=== PATIENT | female | born 1985 | race Caucasian/White ===

== ENCOUNTER → 2021-12-02 | Outpatient (CLI) | payer OTHER, SELFPAY ==
[2021-12-02 14:45] LABS: Absolute Lymphocyte Count 1.26 X10^3/uL (0.83-4.51); Absolute Neutrophil Count 5.4 X10^3/uL (2.0-7.7); Basophil# 0.06 X10^3/uL; Basophil% 0.8 % (0-1); Eosinophil# 0.17 X10^3/uL; Eosinophils% 2.2 % (0-5); Hematocrit 43.9 % (37-47); Hemoglobin 14.7 g/dL (12.0-15.0); Lymphocyte # 1.26 X10^3/ul (0.83-4.51); Lymphocyte % 16.5 % (19-41); Mean Corp Hgb Conc 33.5 g/dL (32-36); Mean Corpuscular Hgb 29.3 pg (27.0-32.0); Mean Corpuscular Volume 87.6 fL (81-99); Mean Platelet Vol. 9.3 fl (6.2-12.0); Monocyte# 0.71 X10^3/uL; Monocyte% 9.3 % (0-10); NRBC Flagged by Analyzer 0 % (0-5); Neutrophil % 70.9 % (47-70); Platelet Count 264 K/mm3 (150-450); RBC Distribution Width CV 12.2 % (11.6-14.6); RBC Distribution Width SD 39.1 fl (35.1-43.9); Red Blood Count 5.01 M/mm3 (4.2-5.4); White Blood Count 7.6 K/mm3 (4.4-11.0)
[2021-12-02 15:05] LABS: ALB/GLOB Ratio 1.2 RATIO (0.9-2.4); AST(SGOT) 15 U/L (15-37); Alanine Aminotransfer ALT/SGPT 33 U/L (13-56); Albumin, Serum 4.7 g/dL (3.2-5.0); Alkaline Phosphatase 54 U/L (45-117); Anion Gap 7 (5-15); BUN 14 mg/dL (7-18); BUN/Creat Ratio 17.5 RATIO (10-20); Calcium,Total 9.4 mg/dL (8.5-10.1); Chloride 102 mmol/L (98-107); EST Glomerular Filtration Rate 86 mL/min (>60); Est Glom Filt Rate - Afr Amer 104 mL/min (>60); Ferritin 67 ng/mL (8-252); Free T3 2.8 pg/mL (2.18-3.98); Globulin 3.8 g/dL (2.2-4.2); Glucose 81 mg/dL (74-106); Iron 58 ug/dL (50-170); Protein, Total 8.5 g/dL (6.4-8.2); Sodium Level 137 mmol/L (136-145); T4 Free Direct 1.05 ng/dL (0.76-1.46); T4 Total, Thyroxin 11.5 ug/dL (4.8-13.9); Thyroid Stim Hormone (TSH) 1.01 uIU/mL (0.358-3.74)
== END | disposition home or self-care (01) ==
LOC: LABSPEC 13:00
PROVIDERS: Referring Provider Nurse Practitioner Family; Visit Provider Nurse Practitioner Family
DX: R53.83 Other fatigue (principal); R63.5 Abnormal weight gain; E04.1 Nontoxic single thyroid nodule
CPT/HCPCS: 80053; 82728; 83540; 84436; 84439; 84443; 84481; 85025

== ENCOUNTER → 2022-03-30 | Outpatient (CLI) | payer OTHER, SELFPAY ==
[2022-03-30 18:14] LABS: Absolute Lymphocyte Count 1.82 X10^3/uL (0.83-4.51); Basophil# 0.05 X10^3/uL; Basophil% 0.6 % (0-1); Eosinophil# 0.19 X10^3/uL; Eosinophils% 2.2 % (0-5); Hematocrit 44.5 % (37-47); Hemoglobin 14.9 g/dL (12.0-15.0); Lymphocyte # 1.82 X10^3/ul (0.83-4.51); Lymphocyte % 20.9 % (19-41); Mean Corp Hgb Conc 33.5 g/dL (32-36); Mean Corpuscular Hgb 28.9 pg (27.0-32.0); Mean Corpuscular Volume 86.4 fL (81-99); Mean Platelet Vol. 9.2 fl (6.2-12.0); Monocyte# 0.68 X10^3/uL; Monocyte% 7.8 % (0-10); NRBC Flagged by Analyzer 0 % (0-5); Neutrophil # 5.96 X10^3/uL (2.7-7.7); Neutrophil % 68.3 % (47-70); Platelet Count 303 K/mm3 (150-450); RBC Distribution Width CV 12.1 % (11.6-14.6); RBC Distribution Width SD 38.3 fl (35.1-43.9); Red Blood Count 5.15 M/mm3 (4.2-5.4); White Blood Count 8.7 K/mm3 (4.4-11.0)
[2022-03-30 18:51] LABS: Progesterone Level 0.41 ng/mL (See Comment)
[2022-03-30 18:58] LABS: ALB/GLOB Ratio 1.1 RATIO (0.9-2.4); AST(SGOT) 19 U/L (15-37); Alanine Aminotransfer ALT/SGPT 22 U/L (13-56); Albumin, Serum 4.4 g/dL (3.2-5.0); Alkaline Phosphatase 23 U/L (45-117); Anion Gap 10 (5-15); BUN 22 mg/dL (7-18); BUN/Creat Ratio 23.6 RATIO (10-20); Chloride 101 mmol/L (98-107); Creatinine, Serum 0.93 mg/dL (0.55-1.02); EST Glomerular Filtration Rate 72 mL/min (>60); Est Glom Filt Rate - Afr Amer 87 mL/min (>60); Estradiol 51.4 pg/mL; Glucose 84 mg/dL (74-106); Potassium 4.3 mmol/L (3.5-5.1); Protein, Total 8.4 g/dL (6.4-8.2); Sodium Level 138 mmol/L (136-145); T4 Free Direct 0.95 ng/dL (0.76-1.46); Thyroid Stim Hormone (TSH) 1.73 uIU/mL (0.358-3.74)
[2022-03-30 18:59] LABS: Hemoglobin A1c 5.5 % (3.8-5.6)
[2022-04-02 17:29] LABS: Thyroid Peroxidase AB < 8 IU/mL (0-34)
== END | disposition home or self-care (01) ==
PROVIDERS: Visit Provider Nurse Practitioner Family
DX: R63.5 Abnormal weight gain (principal); R61 Generalized hyperhidrosis
CPT/HCPCS: 80053; 82670; 83036; 84144; 84403; 84439; 84443; 84481; 85025; 86376